=== PATIENT | male | born 1985 | race Caucasian/White ===

== ENCOUNTER 2025-10-17 16:25 | Emergency (ER) | payer MEDICAID, SELFPAY ==
--- OUTSIDE RECORDS SUMMARY | 2025-10-09 04:00 | XMS_ITS | Continuity of Care Document ---
Author Organization [facility] Address [address] [place] [id number] Phone Care Team Providers Care Consulting Services Manager Name Role Phone Sarah Robertson MS Unavailable Unavailable Allergies, Adverse Reactions, Alerts Substance Reaction Status Criticality No Known Allergies Active No Inform ation Procedures Procedure Date Group Therapy Advance Directives Directive Yes / No Effective Date File Name No Information Encounters Encounter Description Practice Location Reason(s) For Visit Diagnoses Date Provider Group Therapy [facility], [address] [place] [address], [address] [place] [address] tel:[phone] [facility] [address] [place] No Information 2024 Marcelo Smith. [address] [place] [address], [address] [place] [address], . tel:[phone] [facility], [address] [place] [address], [facility], tel:[phone] [facility] [address] [place] No Information 2024 Marcelo Smith. [address] [place] [address], [address] [place] [address], . tel:[phone] [facility], [address] [place] [address], [facility], tel:[phone] [facility] [address] [place] No Information 2024 Marcelo Smith. [address] [place] [address], [address] [place] [address], . tel:[phone] [facility], [address] [place] [address], [facility], [place] tel:[phone] [facility] [address] [place] Encounter for screening exam for behavioral disorder 2024 Lexi Aamauraa. [address] [place] [address], [address] [place] [address], [place]. tel:[phone] [facility], [address] [place] [address], [facility], tel:[phone] [facility] [address] [place] [address] [employer] [place] [address], [address] [place] [address], [place]. tel:[phone] [facility], [address] [place] [address], [facility], tel:[phone] [facility] [address] [place] [address] [employer] [place] [address], [address] [place] [address], [place]. tel:[phone] [facility], [address] [place] [address], [facility], tel:[phone] [facility] [address] [place] [address] [employer] [place] [address], [address] [place] [address], [place]. tel:[phone] [facility], [address] [place] [address], [facility], tel:[phone] [facility] [address] [place] [address] [employer] [place] [address], [address] [place] [address], [place]. tel:[phone] [facility], [address] [place] [address], [facility], tel:[phone] [facility] [address] [place] 2020 Sal Mely. [address] [place] [address], [address] [place] [address], [place]. tel:[phone] [facility], [address] [place] [address], [facility], tel:[phone] [facility] [address] [facility] 2017 Pesino Deina. [address] [place] [address], [address] [place] [address], [place]. tel:[phone] As per patient privacy policy some of the clinical information may not be visible. Family History Family Member Type Diagnosis Age At Onset No Information Payers Payer name Insurance type Covered libertarian ID Authoriza tion(s) No Information Social History Type Description Quantity Date Captured Comments Sex Male Smoking Status No Information Sexual Orientation Straight or heterosexual Jun Gender Identity Male Chief Complaint And Reason For Visit No Information Plan Of Treatment Date Type Action Status Goal HIV 1/0/2 Ag/Ab w/Rflx. Due on due Goal Hepatitis C screening. Due o n due Goal Unhealthy drug use screening . Due on due Goal Td vaccine. Due on 25 due Goal Depression screening. Due on due Goal Influenza vaccine. Due on No due Goal Tdap. Due on due Goal Health Literacy Assessment. Due on due Goal Lipid panel. Due on 025 due Goal Tobacco screening. Due on No due Goal Tobacco cessation counseling completed Goal Depression screening. Due on due Goal Tdap. Due on due Goal HIV 1/0/2 Ag/Ab w/Rflx. Due on due Goal Influenza vaccine. Due on No due Goal Td vaccine. Due on due Goal Health Literacy Assessment. Due on due Goal HIV 1/0/2 Ag/Ab w/Rflx. Due on due Goal Depression screening. Due on due Goal Influenza vaccine. Due on due Goal Td vaccine. Due on due Goal Tdap. Due on due Goal Health Literacy Assessment. Due on due Goal Influenza vaccine. Due on due Goal Td vaccine. Due on due Goal Depression screening. Due on due Goal Tdap. Due on due Goal Health Literacy Assessment. Due on due Goal HIV 1/0/2 Ag/Ab w/Rflx. Due on due Goal Influenza vaccine. Due on due Goal Depression screening. Due on due Goal HIV 1/0/2 Ag/Ab w/Rflx. Due on due Goal Health Literacy Assessment. Due on due Goal Tdap. Due on due Goal Td vaccine. Due on due Goal Influenza vaccine. Due on due Goal Depression screening. Due on due Goal HIV 1/0/2 Ag/Ab w/Rflx. Due on due Goal Health Literacy Assessment. Due on due Goal Tdap. Due on due Goal Td vaccine. Due on due History Of Present Illness Encounter Date Complaint History Of Prese nt Illness No Information Instructions Date Instruction Additional Infor mation No Information Assessments Type Assessment Date No Information
[2025-10-17] VITALS (7 sets, daily range): BP systolic 96–150; BP diastolic 63–71; PULSE 100–150; RESP 15–30; TEMP 37.3–39.4; O2SAT 95–98; BMI 32.3
--- NOTE | ~2025-10-17 | XR_ITS ---
CLINICAL HISTORY: cough 2 view chest Comparison: None Findings: No consolidation or pneumothorax/pleural effusion. Mild peribronchial wall thickening. Cardiomediastinal silhouette is normal. No mediastinal shift or tracheal deviation. Osseous structures intact. Impression: 1. Mild central bronchial wall thickening. 2. No airspace disease. This document has been electronically signed by: Sebastián Lincoln MD on 10/17/2025 18:57:14
--- NOTE | ~2025-10-17 | CT_ITS ---
CLINICAL HISTORY: cough, SOB, fever w bandemia CT angiography chest using contrast. 3-D postprocessing Comparison: CR - XR CHEST 2V - 10/17/25 17:49 EST Findings: There is good opacification of the main, right and left pulmonary arteries. No CT evidence of pulmonary embolism. Normal caliber thoracic aorta and great vessels. Heart size within normal limits. RV/LV ratio normal. Shotty mediastinal lymph nodes. No lymphadenopathy. Subsegmental dependent atelectasis. 5 mm pleural-based nodule superior segment left lower lobe. Lungs are otherwise clear. No pneumothorax, pleural effusions, pleural plaques or calcifications. No thyroid nodules demonstrated. No chest wall masses.No axillary adenopathy. Mild hepatomegaly with hepatic steatosis. No bony destructive processes demonstrated. Impression: 1. No CT evidence of pulmonary embolus. 2. Normal caliber thoracic aorta. 3. Shotty mediastinal lymph nodes probably reactive follow-up is advised. Subsegmental dependent atelectasis. 5 mm pleural-based nodule left lower lobe consider a follow-up CT chest in 1 year's time if patient is high-risk. This document has been electronically signed by: Sebastián Lincoln MD on 10/17/2025 21:10:03
--- NOTE | ~2025-10-17 | CT_ITS ---
CLINICAL HISTORY: bandemia, elevated bili, diffuse tenderness CT abdomen and pelvis with IV contrast Comparison: None Findings: Minimal discoid atelectasis. No dependent layering pleural effusions. The heart is not enlarged. Coronary artery calcifications: None. Mild hepatomegaly with hepatic steatosis. No focal hepatic lesions. Patent hepatic and portal veins. Physiologic distention of the gallbladder with no radiopaque gallstones. Homogeneous enhancement of the pancreas. No splenomegaly. Normal adrenal glands. Symmetrical renal excretion with no segmental or diffuse renal parenchymal disease or evidence of obstructive uropathy/hydroureteronephrosis. Normal caliber abdominal aorta. Bowel demonstrates a nonobstructive pattern. No free air. Normal appendix and terminal ileum. No significant diverticular disease. No intraperitoneal, retroperitoneal, pelvic or inguinal masses lymphadenopathy or abnormal fluid collections. Normal distention of the urinary bladder. No vertebral body compression fractures or spondylolisthesis. No bony destructive lesions. Impression: 1. Mild hepatomegaly with hepatic steatosis. 2. Normal appendix. No significant diverticular disease. 3. No radiopaque gallstones. This document has been electronically signed by: Sebastián Lincoln MD on 10/17/2025 21:05:07
--- NOTE | 2025-10-17 16:35 | ED_ITS ---
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 Patient reports he went to [facility] yesterday and on his back his symptoms started with chills, and vomiting. Patient reports he was seen at an emergency department in [facility] yesterday with negative chest x-ray and viral testing. Patient states he was attempting to eat Aleta dinner with his family when he began to experience worsening chills and rigors. Patient states he had 1 episode of vomiting while in the department however believes this is due to a coughing fit. Denies chest pain, shortness of breath, difficulty breathing, abdominal pain, nausea, diarrhea, recent travel, MD complaint: dry cough, chills, malaise Related Data Previous Rx's ?Medication ?Instructions ?Recorded cefuroxime axetil 500 mg tablet 500 mg PO Q12H #14 tab s 10/17/25 Allergies Allergy/AdvReac Type Severity Reaction Status Date / Time No Known Allergies Allergy Verified 10/17/25 16:36 Review of Systems 2 Review of Systems: Yes all other systems are reviewed and are negative PMFSH Past Medical History Attestation statement: The following information was validated with the patient. Source: old records reviewed and nursing notes reviewed Social History Social History Alcohol intake: current Smoked in Last 30 Days: Yes Use of substances other than those prescribed or required for medical reasons: No Advance Directives: No Advance Directives Information Provided: No Do you have a plan to hurt others: No Plan Physical Exam ED Vital Signs: Vital Signs - 24 hr 10/17/25 23:20 Temperature 99.1 F Pulse Rate 100 Respiratory Rate 20 Blood Pressure 103/68 Pulse Oximetry 96 Oxygen Delivery Method Room Air BMI result Body Mass Index 32.3 Course Course Course Narrative: This is a Rapid Medical Examination (RME) performed by Ryan Rosario PA-C in triage. Full HPI, ROS, assessment and treatment plan per primary provider in the Main ED. Hx: 40 yo M here w/ cough, myalgias, chills x48 hours. states he was seen in an ED [place] yesterday - dx w/ a viral illness and discharge on tylenol. took 1000mg around 1330 today (3 hours prior) Plan: cxr, viral swabs, ekg 10:44 PM 10/17/2025 (Ryan JACINTO): Patient is signed out to this provider at shift change. In summary the patient is a 40-year-old male presenting to the ED for evaluation of 48 hours of body aches, chills, and generalized malaise. The patient was seen at a hospital in [place] last night for these symptoms and had a negative chest x-ray and viral swabs. The patient presents to the ED today febrile at 102.9, and tachycardic. Laboratory evaluation showed bandemia of 25% and lactic acid of 4.0. Patient received sepsis treatment and lactic acid improved to 2.2, fever resolved, and heart rate improved. The patient's urinalysis was positive for protein, glucose, blood, leukocyte esterase and 1+ bacteria. The patient however has no urinary symptoms. No other infectious source was identified on chest x-ray or exam, a bedside ultrasound was performed by Dr. Arzate. The patient was signed out to this provider pending CT imaging of the abdomen and pelvis, and CTA of the chest. Patient's imaging is now resulted and shows no identifiable source of systemic infection. The patient is adamantly requesting discharge home, patient was seen by Dr. Saida Medina for risks benefit discussion regarding admission versus discharge. The patient was able to state his understanding of the risks of leaving prior to completion of treatment or cultures while having tachycardia, fever, bandemia, and lactic acidosis. Patient was able to state his understanding of the risks of leaving the ED, at this time patient is alert and oriented, in no acute distress, no evidence of impaired ability to make clinical decisions. The patient will be discharged with a course of cefpodoxime for question UTI. Put cultures were drawn during initial presentation and workup, the patient will be discharged per his request, and states he will follow up cultures. 10:57 PM 10/18/2025 (Ryan JACINTO): This provider received a phone call from the lab identifying the patient had grown out Gram-positive cocci in the anaerobic bottle of 1 of his 2 blood cultures. The patient was contacted by this provider and informed of this finding. Patient reports he is feeling markedly improved compared to his visit yesterday, had a mild headache this morning but is feeling overall much better. Patient reports he continues to be compliant with his cefuroxime prescription. The patient was encouraged to closely monitor his symptoms and have a low threshold to return immediately to this, or any local emergency department (patient does not live locally) if he feels any worsening symptoms. Patient was also encouraged, if he continues to feel well, to contact his PCP on Tuesday for urgent follow up and reassessment due to the positive blood cultures, regardless of how he is feeling. Patient stated his understanding and states he will continue antibiotic therapy, present immediately to a local emergency department with any worsening symptoms, and we will contact his PCP on Tuesday. Patient stated he appreciated the phone call, patient sounded reliable. OPHELIA Monsalve 10/23/25 0721 2/2 blood cultures positive - attempted to contact patient with resutls. no answer, LVM for call back. OPHELIA Monsalve 10/23/25 0847 Patient return my call regarding positive blood cultures. He states he is still having a headache intermittently, otherwise no other symptoms. He states that he is local to [place], he was only in [place] for the day. I informed him of positive 2/2 sets of blood cultures, and advised him to return to the ED to have repeat blood work/ further work up. he verbalized understanding, he could not tell me if he would return to our facility for testing but states if he does not, he will go to his nearest ED in [place]. all questions answered at this time. Reevaluation(s) Reevaluation #1: Eliot Arzate MD: I personally had a lengthy shared decision-making discussion patient was eager to leave the hospital and go back to [place] where he lives. See above for further narrative. The patient's girlfriend was present patient has provided reliable phone number to call if blood cultures are positive he understands Medications Administered Discontinued Medications Generic Name Dose Route Start Last Admin Trade Name Freq PRN Reason Stop Dose Admin Cefuroxime Axetil 500 mg 10/17/25 22:54 10/17/25 22:59 Cefuroxime Axetil 500 Mg Tablet PO 10/17/25 22:55 500 mg ONCE ONE Administration Lactated Ringer's 1,000 mls @ 999 mls/hr 10/17/25 17:21 10/17/25 18:37 Lr IV 10/17/25 18:21 Infused .Q1H1M ONE Infusion Lactated Ringer's 3,240 mls @ 3,240 mls/hr 10/17/25 17:57 10/17/25 19:18 Lr 30 ml/kg infuse over 1 hr (3240 ml) 10/17/25 18:56 Infused IV Infusion .Q1H ONE Ceftriaxone Sodium 1 gm/ 50 mls @ 100 mls/hr 10/17/25 18:00 10/17/25 18:37 Sodium Chloride IV 10/17/25 18:29 Infused ONCE ONE Infusion Acetaminophen 1,000 mg in 100 mls @ 400 mls/hr 10/17/25 19:09 10/17/25 19:47 Ofirmev IV 10/17/25 19:23 Infused ONCE ONE Infusion Iohexol 85 ml 10/17/25 19:46 10/17/25 19:47 Iohexol 350 Mg/Ml 100 Ml Infus..Btl IV 10/17/25 19:47 85 ml ONCE ONE Administration Procedures Procedure Narrative Procedure Narrative: EMERGENCY ULTRASOUND INTERPRETATION-Limited Echocardiography [This study was ordered, performed, and interpreted by myself. 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 Patient reports he went to [facility] yesterday and on his back his symptoms started with chills, and vomiting. Patient reports he was seen at an emergency department in [place] yesterday with negative chest x-ray and viral testing. Patient states he was attempting to eat Aleta dinner with his family when he began to experience worsening chills and rigors. Patient states he had 1 episode of vomiting while in the department however believes this is due to a coughing fit. VS on initial observation-BP 150/71, pulse rate of 150, respiratory rate of 20, afebrile with oral temp of 102.9?, O2 saturation 98% on room air. On physical exam patient is tired appearing, and looks ill. HEENT exam reveals normocephalic head, atraumatic, EOMI, no pain with extraocular movements, no nystagmus noted, no meningeal signs, no tenderness and ranging the neck, no stiffness Lungs are clear to auscultation bilaterally, cardiac exam reveals a tachycardic rate and rhythm without murmurs/rubs/gallops, abdomen is soft, without rigidity, no guarding, nontender, extremities without edema, cyanosis, no rashes over the skin Plan: Labs, EKG, CXR EKG reveals sinus tachycardia without ST-elevation/depression, lengthened QT or signs of acute ischemia, initial troponin 15.1, patient without chest pain-ACS less likely Labs reveal leukopenia of 3.9 with bandemia of 25, no evidence of anemia, lactic acid of 4.0, total bilirubin of 2.1, no electrolyte abnormality. UA reveals concentrated urine with 4+ protein, >1000 urine glucose, 1+ urine blood, trace leukocyte esterase, 3-5 urine RBCs, 6-10 urine WBCs, 0-2 squamous epithelial cells, 1+ urine bacteria CXR reveals mild bronchial wall thickening without acute airspace disease At 6:30 on 10/17/25 I suspected infection due to lactic acid of 4.0, bandemia of 25, tachycardia of 150, and febrile at 102.9 patient was medicated with 30 mg/kg IV fluid bolus, 1 g IV Tylenol, and 1g IV ceftriaxone given for bacterial coverage. I ordered CTA PE protocol, and CT abdomen and pelvis for further evaluation for leukopenia, and bandemia. Differential Diagnosis Differential Diagnoses: The differential diagnosis associated with the presentation includes Dysrhythmia COVID Flu RSV Viral illness Pneumonia UTI Acute abdomen Admission/Observation Consideration of admission/observation: Escalation of care including admission/observation considered Lab Data MDM Lab Attestation statement: I reviewed the patient's lab results. 10/17/25 17:02 10/17/25 17:02 Labs: Lab Results 10/17/25 10/17/25 10/17/25 Range/Units 16:44 17:02 17:04 WBC 3.9 L (4.8-10.8) X10*3/uL RBC 6.14 H (4.60-5.80) X10*6/uL Hgb 17.8 (14.0-18.0) g/dl Hct 49.5 (42.0-52.0) % MCV 80.6 (80.0-98.0) fL MCH 29.0 (27.0-33.0) pg MCHC 36.0 (31.0-36.0) g/dl RDW 12.2 (11.0-16.0) % Plt Count 213 (160-400) X10*3/uL MPV 10.0 (9.4-12.4) fL Immature Gran % (Auto) Cancelled Neut % (Auto) Cancelled Lymph % (Auto) Cancelled [place] % (Auto) Cancelled Eos % (Auto) Cancelled Baso % (Auto) Cancelled Lymph # (Auto) Cancelled [place] # (Auto) Cancelled Eos # (Auto) Cancelled Baso # (Auto) Cancelled Abs Immat Gran (auto) Cancelled Absolute Neuts (auto) Cancelled Absolute Nucleated RBC 0.000 (0.0-0.012) X10*3/uL Nucleated RBC % (auto) 0.0 (0.0-0.2) /100WBC Neutrophils % (Manual) 46 (45-73) % Band Neutrophils % 25 H (3-5) % Lymphocytes % (Manual) 27 (20-40) % Atypical Lymphs % (Man) 2 (0-6) % Abs Neuts (Manual) 2.8 (2.0-8.3) X10*3/uL Lymphocytes # (Manual) 1.1 L (1.2-4.9) X10*3/uL Atyp Lymphs # (Manual) 0.1 x10*3/uL Smudge Cells PRESENT Toxic Vacuolation PRESENT Platelet Estimate NORMAL (NORMAL) Large Platelets PRESENT Plt Morphology Comment NORMAL RBC Morphology NOTED Tatyana Cells 1+ (0-2) /OIF Smear Tech's Comments VERIFIED PT 13.5 (11.2-13.5) SEC INR 1.1 (0.9-1.1) Sodium 136 (135-145) mmol/L Potassium 4.0 (3.3-5.1) mmol/L Chloride 102 (96-108) mmol/L Carbon Dioxide 19 L (22-29) mmol/L Anion Gap 19 (12-20) BUN 12 (9-16) mg/dL Creatinine 1.05 (0.5-1.4) mg/dL Estim Creat Clear Calc 116.3 Estimated GFR > 60 Random Glucose 297 H (60-115) mg/dL Lactic Acid (0.5-2.0) mmol/L Lactic Acid F/U @ 2Hr (0.5-2.0) mmol/L Calcium 9.3 (8.4-10.2) mg/dL Magnesium 1.7 (1.6-2.6) mg/dL Total Bilirubin 2.1 H (0.0-1.0) mg/dL AST 31 (5-37) U/L ALT 23 (0-40) U/L Alkaline Phosphatase 94 (39-117) U/L Troponin I High Sens 15.1 (<3.5-35.0) ng/L Total Protein 7.8 (6.5-8.0) g/dL Albumin 4.2 (3.5-5.0) g/dL Urine Color Dark Yellow Urine Appearance Cloudy Urine pH 5.5 (5.0-9.0) Ur Specific Taylor >= 1.030 H (1.005-1.025) Urine Protein >=1000 (4+) H (Neg-Trace) mg/dL Urine Glucose (UA) >=1000 H (Negative) mg/dL Urine Ketones Trace (Negative) mg/dL Urine Blood Small (1+) H (Negative) Urine Nitrite Negative (Negative) Ur Leukocyte Esterase Trace H (Negative) Urine RBC 3-5 H (0-2) /HPF Urine WBC 6-10 H (0-5) /HPF Ur Squamous Epith Cells 0-2 (0-2) /HPF Ur Transition Epith Cell None seen Urine Bacteria 1+ (None Seen) Hyaline Casts 3-5 (0-2) /LPF Granular Casts Present Influenza Type A (PCR) NEGATIVE (Negative) Influenza Type B (PCR) NEGATIVE (Negative) RSV RNA Qual (PCR) NEGATIVE (Negative) SARS-CoV-2 RNA (RT-PCR) NEGATIVE (Negative) 10/17/25 10/17/25 Range/Units 17:25 19:53 WBC (4.8-10.8) X10*3/uL RBC (4.60-5.80) X10*6/uL Hgb (14.0-18.0) g/dl Hct (42.0-52.0) % MCV (80.0-98.0) fL MCH (27.0-33.0) pg MCHC (31.0-36.0) g/dl RDW (11.0-16.0) % Plt Count (160-400) X10*3/uL MPV (9.4-12.4) fL Immature Gran % (Auto) Neut % (Auto) Lymph % (Auto) [place] % (Auto) Eos % (Auto) Baso % (Auto) Lymph # (Auto) [place] # (Auto) Eos # (Auto) Baso # (Auto) Abs Immat Gran (auto) Absolute Neuts (auto) Absolute Nucleated RBC (0.0-0.012) X10*3/uL Nucleated RBC % (auto) (0.0-0.2) /100WBC Neutrophils % (Manual) (45-73) % Band Neutrophils % (3-5) % Lymphocytes % (Manual) (20-40) % Atypical Lymphs % (Man) (0-6) % Abs Neuts (Manual) (2.0-8.3) X10*3/uL Lymphocytes # (Manual) (1.2-4.9) X10*3/uL Atyp Lymphs # (Manual) x10*3/uL Smudge Cells Toxic Vacuolation Platelet Estimate (NORMAL) Large Platelets Plt Morphology Comment RBC Morphology Tatyana Cells /OIF Smear Tech's Comments PT (11.2-13.5) SEC INR (0.9-1.1) Sodium (135-145) mmol/L Potassium (3.3-5.1) mmol/L Chloride (96-108) mmol/L Carbon Dioxide (22-29) mmol/L Anion Gap (12-20) BUN (9-16) mg/dL Creatinine (0.5-1.4) mg/dL Estim Creat Clear Calc Estimated GFR Random Glucose (60-115) mg/dL Lactic Acid 4.0 H* (0.5-2.0) mmol/L Lactic Acid F/U @ 2Hr 2.2 H* (0.5-2.0) mmol/L Calcium (8.4-10.2) mg/dL Magnesium (1.6-2.6) mg/dL Total Bilirubin (0.0-1.0) mg/dL AST (5-37) U/L ALT (0-40) U/L Alkaline Phosphatase (39-117) U/L Troponin I High Sens (<3.5-35.0) ng/L Total Protein (6.5-8.0) g/dL Albumin (3.5-5.0) g/dL Urine Color Urine Appearance Urine pH (5.0-9.0) Ur Specific Taylor (1.005-1.025) Urine Protein (Neg-Trace) mg/dL Urine Glucose (UA) (Negative) mg/dL Urine Ketones (Negative) mg/dL Urine Blood (Negative) Urine Nitrite (Negative) Ur Leukocyte Esterase (Negative) Urine RBC (0-2) /HPF Urine WBC (0-5) /HPF Ur Squamous Epith Cells (0-2) /HPF Ur Transition Epith Cell Urine Bacteria (None Seen) Hyaline Casts (0-2) /LPF Granular Casts Influenza Type A (PCR) (Negative) Influenza Type B (PCR) (Negative) RSV RNA Qual (PCR) (Negative) SARS-CoV-2 RNA (RT-PCR) (Negative) Independent Interpretation I performed an independent interpretation of an: EKG and Plain X-Ray Interpretation: I personally interpreted the EKG which reveals sinus tachycardia without signs of acute ischemia, lengthened QT Vent. Rate : 150 BPM Atrial Rate : 150 BPM P-R Int : 126 ms QRS Dur : 74 ms QT Int : 266 ms P-R-T Axes : 65 88 48 degrees QTcB Int : 420 ms Sinus tachycardia Possible Anterior infarct , age undetermined Abnormal ECG No previous ECGs available I interpreted the CXR which was negative for infiltrations, consolidations, pneumothorax, cardiomegaly, pulmonary edema, pleural effusion, I agree with the radiologist's interpretation Radiology Impression Discussion of test interpretation with radiology: I have reviewed the radiologist's reading. Radiologist Impression: CXR Findings: No consolidation or pneumothorax/pleural effusion. Mild peribronchial wall thickening. Cardiomediastinal silhouette is normal. No mediastinal shift or tracheal deviation. Osseous structures intact. Impression: 1. Mild central bronchial wall thickening. 2. No airspace disease. This document has been electronically signed by: Sebastián Lincoln MD on 10/17/2025 18:57:14 Dictated By: Sebastián Lincoln MD Signed By: <Electronically signed by Sebastián Lincoln MD in [place]> 10/17/[address] abdomen and pelvis with IV contrast Comparison: None Findings: Minimal discoid atelectasis. No dependent layering pleural effusions. The heart is not enlarged. Coronary artery calcifications: None. Mild hepatomegaly with hepatic steatosis. No focal hepatic lesions. Patent hepatic and portal veins. Physiologic distention of the gallbladder with no radiopaque gallstones. Homogeneous enhancement of the pancreas. No splenomegaly. Normal adrenal glands. Symmetrical renal excretion with no segmental or diffuse renal parenchymal disease or evidence of obstructive uropathy/hydroureteronephrosis. Normal caliber abdominal aorta. Bowel demonstrates a nonobstructive pattern. No free air. Normal appendix and terminal ileum. No significant diverticular disease. No intraperitoneal, retroperitoneal, pelvic or inguinal masses lymphadenopathy or abnormal fluid collections. Normal distention of the urinary bladder. No vertebral body compression fractures or spondylolisthesis. No bony destructive lesions. Impression: 1. Mild hepatomegaly with hepatic steatosis. 2. Normal appendix. No significant diverticular disease. 3. No radiopaque gallstones. This document has been electronically signed by: Sebastián Lincoln MD on 10/17/2025 21:05:07 CT angiography chest using contrast. 3-D postprocessing Comparison: CR - XR CHEST 2V - 10/17/25 17:49 EST Findings: There is good opacification of the main, right and left pulmonary arteries. No CT evidence of pulmonary embolism. Normal caliber thoracic aorta and great vessels. Heart size within normal limits. RV/LV ratio normal. Shotty mediastinal lymph nodes. No lymphadenopathy. Subsegmental dependent atelectasis. 5 mm pleural-based nodule superior segment left lower lobe. Lungs are otherwise clear. No pneumothorax, pleural effusions, pleural plaques or calcifications. No thyroid nodules demonstrated. No chest wall masses.No axillary adenopathy. Mild hepatomegaly with hepatic steatosis. No bony destructive processes demonstrated. Impression: 1. No CT evidence of pulmonary embolus. 2. Normal caliber thoracic aorta. 3. Shotty mediastinal lymph nodes probably reactive follow-up is advised. Subsegmental dependent atelectasis. 5 mm pleural-based nodule left lower lobe consider a follow-up CT chest in 1 year's time if patient is high-risk. This document has been electronically signed by: Sebastián Lincoln MD on 10/17/2025 21:10:03 Independent Historian Clinical information obtained from an independent historian. History obtained from or confirmed by: Spouse (Significant other at bedside corroborating history) External Record Review External record reviewed: Inpatient record, Office record, Outpatient record and Prior outpatient labs Chronic Conditions Patient?s care impacted by: Diabetes, Hypertension and Other (DVT on AC) Discharge Plan Discharge Clinical Impression: Bandemia without diagnosis of specific infection Patient Disposition: Home, Self-Care Instructions: Sepsis (DC), Leukocytosis (ED) Additional Instructions: Thank you for choosing [facility] for your care today. Your labs and vital signs today are potentially concerning for a systemic infection in your blood. However we are currently unable to find a specific source of this infection, your urinalysis did show some findings concerning for possible UTI. We did recommend admission while awaiting results of blood cultures however you are requesting to be discharged instead. Seeing as your vital signs have improved, and blood cultures have been drawn, it is safe to discharge you home per your request. Please take cefuroxime twice daily to treat your potential urinary tract infection. Please contact the hospital in 3 days if you do not hear any results regarding your blood cultures. You should take alternating (staggered) doses of ibuprofen 600mg and Tylenol 1000mg every 4 hours as needed for any additional pain. Please stay well hydrated and get plenty of rest. Your CT chest showed some abnormal lymph nodes in the mediastinum. Please contact your primary care provider for a follow up in 1 year for re-evaluation of this finding. Please follow up with your primary care physician for re-evaluation, additional management of your symptoms, and continued preventative care. If you do not have a primary care physician, please call the [facility] at [phone] to establish a new primary care physician. While waiting to establish your new primary care physician, you can call our Walk-in [facility] at [phone] for non-emergency needs. Please return to the emergency department if you develop a severe or sudden change in your symptoms, a fever over 100.4 that does not improve with Tylenol or Ibuprofen, recurrent vomiting, or any other new or worsening symptoms or concerns. Prescriptions: New cefuroxime axetil 500 mg tablet 500 mg PO Q12H Qty: 14 0RF Stand Alone Forms: Work/School Release Interventions: ED Discharge Assessment Last Done: 10/17/25 23:20 Discharge Date/Time: 10/17/25 23:20 Print Language: Irish
--- NOTE | 2025-10-17 16:39 | ECG_ITS ---
Test Reason : COUGH Blood Pressure : */* mmHG Vent. Rate : 150 BPM Atrial Rate : 150 BPM P-R Int : 126 ms QRS Dur : 74 ms QT Int : 266 ms P-R-T Axes : 65 88 48 degrees QTcB Int : 420 ms Sinus tachycardia Possible Anterior infarct , age undetermined Abnormal ECG No previous ECGs available Referred By: Divya Rosario Electronically Signed By: OTTO VILLARREAL MD
[2025-10-17 17:18] LABS: Hematocrit 49.5 % (42.0-52.0); Hemoglobin 17.8 g/dl (14.0-18.0); Mean Corpuscular HGB Conc 36.0 g/dl (31.0-36.0); Mean Corpuscular Hemoglobin 29.0 pg (27.0-33.0); Mean Corpuscular Volume 80.6 fL (80.0-98.0); NRBC Abs Auto 0.000 X10*3/uL (0.0-0.012); NRBC Pct Auto 0.0 /100WBC (0.0-0.2); Platelet Count 213 X10*3/uL (160-400); Red Blood Count 6.14 X10*6/uL (4.60-5.80); White Blood Count 3.9 X10*3/uL (4.8-10.8)
[2025-10-17 17:26] LABS: INTERNATIONAL NORM RATIO 1.1 (0.9-1.1); Prothrombin Time 13.5 SEC (11.2-13.5)
[2025-10-17] MEDS: Lactated Ringers 1,000 ML 999 ML IV (17:30)
[2025-10-17 17:34] LABS: Alanine Aminotransferase 23 U/L (0-40); Albumin Level 4.2 g/dL (3.5-5.0); Alkaline Phosphatase 94 U/L (39-117); Anion Gap 19 (12-20); Aspartate Amino Transferase 31 U/L (5-37); Blood Urea Nitrogen 12 mg/dL (9-16); Calcium 9.3 mg/dL (8.4-10.2); Carbon Dioxide 19 mmol/L (22-29); Chloride 102 mmol/L (96-108); Creatinine Clr Calc Pharmacy 116.3; Estimated Glomerular Filt Rate > 60; Magnesium 1.7 mg/dL (1.6-2.6); Potassium 4.0 mmol/L (3.3-5.1); Sodium 136 mmol/L (135-145); Total Protein 7.8 g/dL (6.5-8.0)
[2025-10-17 17:38] LABS: Troponin-I High Sensitivity 15.1 ng/L (<3.5-35.0)
[2025-10-17 17:45] LABS: Resp Syncy Virus RNA Qual PCR NEGATIVE (Negative); SARS COV2 PCR INHOUSE NEGATIVE (Negative)
[2025-10-17 17:55] LABS: Neutrophils Percent Manual 46 % (45-73)
[2025-10-17 17:57] LABS: Atypical Lymph Absolute Manual 0.1 x10*3/uL; Atypical Lymphs Percent Manual 2 % (0-6); Band Neutrophils Percent 25 % (3-5); Lymphocytes Absolute Manual 1.1 X10*3/uL (1.2-4.9); Lymphocytes Percent Manual 27 % (20-40); Neutrophils Absolute Manual 2.8 X10*3/uL (2.0-8.3); RBC Morphology NOTED
[2025-10-17 17:58] LABS: Burr Cells 1+ (0-2) /OIF; Large Platelet PRESENT; Smudge Cells PRESENT
[2025-10-17 17:59] LABS: Toxic Vacuolation PRESENT
--- OUTSIDE RECORDS SUMMARY | 2025-10-17 18:00 | XMS_ITS ---
Author Name [facility] Organization Unknown Results Test Name/Text Value Interpretation Date Range Source 2019-nCOV RNA Not Detected 10/17/2025 [facility] CCT Influenza virus A in upper resp spec by JORI with probe detection Not Detected 10/17/2025 [facility] Respiratory syncytial virus RNA in upper resp spec by JORI with probe detection Not Detected 10/17/2025 [facility] Comment Negative results do not preclude SARS-CoV-2, Influenza or RSV infection and should not be used as the sole basis for treatment or other patient management decisions. 10/17/2025 [facility] Influenza virus B in upper resp spec by JORI with probe detection Not Detected 10/17/2025 [facility]CT Magnesium SerPl-mCnc 1.8 mg/dL 10/17/2025 1.6 - 2. 7 H[facility]CT GFR/BSA.pred SerPlBld TFN-HUH-AeXCnc >90.0 10/17/2025 59 - HHCCT ALP SerPl-cCnc 73.0 U/L 10/17/2025 45 - 128 HHCC T Albumin/Glob SerPl 1.1 Ratio 10/17/2025 1 - 3 HHCCT Potassium SerPl-sCnc 3.8 mmol/L 10/17/2025 3.4 - 5 .3 HHCCT BUN SerPl-mCnc 10.0 mg/dL 10/17/2025 8 - [address] Globulin Ser Calc-mCnc 3.6 g/dL 10/17/2025 1.5 - 3.9 HHCCT Bilirub SerPl-mCnc 1.5 mg/dL Above high normal 10/17/2025 0. 2 - 1 HHCCT Anion Gap Bld-sCnc 14.0 10/17/2025 7 - 17 HHCCT Creat SerPl-mCnc 0.63 mg/dL 10/17/2025 0.5 - 1.3 H HCCT Prot SerPl-mCnc 7.4 g/dL 10/17/2025 6.3 - 8.[address] AST SerPl-cCnc 18.0 U/L 10/17/2025 10 - 55 [facility] T ALT SerPl-cCnc 17.0 U/L 10/17/2025 10 - 55 [facility] T BUN/Creat SerPl 16.0 Ratio 10/17/2025 10 - 25 HH CCT Sodium SerPl-sCnc 132.0 mmol/L Below low normal 10/17/2025 1 36 - 145 HHCCT Glucose SerPl-mCnc 248.0 mg/dL Above high normal 10/17/2025 65 - 99 HHCCT Chloride SerPl-sCnc 96.0 mmol/L Below low normal 10/17/2025 98 - 107 HHCCT Albumin SerPl-mCnc 3.8 g/dL 10/17/2025 3.5 - 5 HHCCT CO2 SerPl-sCnc 22.0 mmol/L 10/17/2025 22 - 33 HH CCT Calcium SerPl-mCnc 8.8 mg/dL 10/17/2025 8.7 - 10.5 HHCCT WBC num Bld Auto 11.3 Thou/uL Above high normal 10/17/2025 4 - 11 HHCCT RDW RBC Auto-Rto 12.1 % 10/17/2025 11.5 - 14.5 HHCCT Imm Granulocytes num Bld Auto 0.05 Thou/uL 10/17/2025 0 - 0.1 HHCCT Basophils/leuk NFr Bld Auto 0.3 % 10/17/2025 H[facility]CT Neutrophils num Bld Auto 9.58 Thou/uL Above high normal 10/17/2025 2 - 7.5 HHCCT Lymphocytes num Bld Auto 0.66 Thou/uL Below low normal 10/17/2025 1.5 - 4.5 HHCCT PMV Bld Auto 9.8 fL 10/17/2025 7.5 - 12.5 HHCCT RBC num Bld Auto 5.89 Mil/uL 10/17/2025 4.5 - 6.2 HHCCT Monocytes/leuk NFr Bld Auto 8.3 % 10/17/2025 H[facility]CT Monocytes num Bld Auto 0.94 Thou/uL 10/17/2025 0.2 - 1.5 HHCCT MCH RBC Qn Auto 28.5 pg 10/17/2025 26 - [address] Eosinophil/leuk NFr Bld Auto 0.0 % 10/17/2025 H[facility]CT Eosinophil num Bld Auto 0.0 Thou/uL 10/17/2025 0 - 0.7 HHCCT Hgb Bld-mCnc 16.8 g/dL 10/17/2025 13 - 17.7 HHCCT Hct VFr Bld Auto 46.9 % 10/17/2025 39 - 54 HH CCT Platelet num Bld Auto 228.0 Thou/uL 10/17/2025 150 - 450 HHCCT Basophils num Bld Auto 0.03 Thou/uL 10/17/2025 0 - 0.2 HHCCT Lymphocytes/leuk NFr Bld Auto 5.9 % 10/17/2025 H[facility]CT Neutrophils/leuk NFr Bld Auto 85.1 % 10/17/2025 HHCCT MCV RBC Auto 80.0 fL 10/17/2025 80 - 100 HHCCT Imm Granulocytes/leuk NFr Bld Auto 0.4 % 10/17/2025 HHCCT MCHC RBC Auto-mCnc 35.8 g/dL 10/17/2025 30 - 36 HHCCT POC Glucose 216.0 mg/dL Above high normal 08/12/2025 65 - 99 HHCCT Magnesium SerPl-mCnc 1.9 mg/dL 08/12/2025 1.6 - 2. 7 HHCCT Creat SerPl-mCnc 0.51 mg/dL 08/12/2025 0.5 - 1.3 H HCCT Potassium SerPl-sCnc 4.3 mmol/L 08/12/2025 3.4 - 5 .3 HHCCT Glucose SerPl-mCnc 168.0 mg/dL Above high normal 08/12/2025 65 - 99 HHCCT CO2 SerPl-sCnc 21.0 mmol/L Below low normal 08/12/2025 22 - 33 HHCCT Calcium SerPl-mCnc 8.8 mg/dL 08/12/2025 8.7 - 10.5 HHCCT Chloride SerPl-sCnc 98.0 mmol/L 08/12/2025 98 - 10 7 HHCCT BUN SerPl-mCnc 11.0 mg/dL 08/12/2025 8 - [address] Sodium SerPl-sCnc 134.0 mmol/L Below low normal 08/12/2025 1 36 - 145 HHCCT BUN/Creat SerPl 22.0 Ratio 08/12/2025 10 - 25 HH CCT GFR/BSA.pred SerPlBld RKB-ZVU-EvVXkv >90.0 08/12/2025 59 - HHCCT Anion Gap Bld-sCnc 15.0 08/12/2025 7 - 17 HHCCT POC Glucose 161.0 mg/dL Above high normal 08/12/2025 65 - 99 HHCCT Est. average glucose Bld gHb Est-mCnc 266.0 mg/dL 08/12/2025 HHCCT Hgb A1c MFr Bld 10.9 % Above high normal 08/12/2025 - 5.7 HHCCT Platelet num Bld Auto 278.0 Thou/uL 08/12/2025 150 - 450 HHCCT PMV Bld Auto 9.8 fL 08/12/2025 7.5 - 12.5 HHCCT RBC num Bld Auto 5.21 Mil/uL 08/12/2025 4.5 - 6.2 HHCCT Hgb Bld-mCnc 15.0 g/dL 08/12/2025 13 - 17.7 HHCCT Hct VFr Bld Auto 42.8 % 08/12/2025 39 - 54 HH CCT RDW RBC Auto-Rto 11.7 % 08/12/2025 11.5 - 14.5 HHCCT WBC num Bld Auto 14.7 Thou/uL Above high normal 08/12/2025 4 - 11 HHCCT MCHC RBC Auto-mCnc 35.0 g/dL 08/12/2025 30 - 36 HHCCT MCH RBC Qn Auto 28.8 pg 08/12/2025 26 - [address] MCV RBC Auto 82.0 fL 08/12/2025 80 - 100 HHCCT POC Glucose 194.0 mg/dL Above high normal 08/11/2025 65 - 99 HHCCT POC Glucose 262.0 mg/dL Above high normal 08/11/2025 65 - 99 HHCCT POC Glucose 205.0 mg/dL Above high normal 08/11/2025 65 - 99 HHCCT Influenza virus B in upper resp spec by JORI with probe detection Not Detected 08/11/2025 [facility]CT Influenza virus A in upper resp spec by JORI with probe detection Not Detected 08/11/2025 [facility]CT 2019-nCOV RNA Not Detected 08/11/2025 [facility] CCT Respiratory syncytial virus RNA in upper resp spec by JORI with probe detection Not Detected 08/11/2025 H[facility]CT Comment Negative results do not preclude SARS-CoV-2, Influenza or RSV infection and should not be used as the sole basis for treatment or other patient management decisions. 08/11/2025 HHCCT Lactate SerPl-sCnc 1.3 mmol/L 08/11/2025 0.5 - 1.9 HHCCT CO2 SerPl-sCnc 21.0 mmol/L Below low normal 08/11/2025 22 - 33 HHCCT BUN SerPl-mCnc 13.0 mg/dL 08/11/2025 8 - [address] Bilirub SerPl-mCnc 1.4 mg/dL Above high normal 08/11/2025 0. 2 - 1 HHCCT Sodium SerPl-sCnc 133.0 mmol/L Below low normal 08/11/2025 1 36 - 145 HHCCT Creat SerPl-mCnc 0.59 mg/dL 08/11/2025 0.5 - 1.3 H HCCT Albumin SerPl-mCnc 3.7 g/dL 08/11/2025 3.5 - 5 HHCCT Calcium SerPl-mCnc 8.9 mg/dL 08/11/2025 8.7 - 10.5 HHCCT BUN/Creat SerPl 22.0 Ratio 08/11/2025 10 - 25 HH CCT Prot SerPl-mCnc 7.1 g/dL 08/11/2025 6.3 - 8.[address] AST SerPl-cCnc 13.0 U/L 08/11/2025 10 - 55 [facility] T Globulin Ser Calc-mCnc 3.4 g/dL 08/11/2025 1.5 - 3.9 HHCCT Chloride SerPl-sCnc 97.0 mmol/L Below low normal 08/11/2025 98 - 107 HHCCT Anion Gap Bld-sCnc 15.0 08/11/2025 7 - 17 HHCCT Glucose SerPl-mCnc 267.0 mg/dL Above high normal 08/11/2025 65 - 99 HHCCT ALP SerPl-cCnc 114.0 U/L 08/11/2025 45 - 128 [facility] T Albumin/Glob SerPl 1.1 Ratio 08/11/2025 1 - 3 HHCCT Potassium SerPl-sCnc 4.0 mmol/L 08/11/2025 3.4 - 5 .3 HHCCT ALT SerPl-cCnc 11.0 U/L 08/11/2025 10 - 55 [facility] T GFR/BSA.pred SerPlBld VMB-YHP-QfOZnz >90.0 08/11/2025 59 - HHCCT Magnesium SerPl-mCnc 2.0 mg/dL 08/11/2025 1.6 - 2. 7 HHCCT B-OH-Butyr SerPl-sCnc 0.15 mmol/L 08/11/2025 - 0.28 HHCCT Osmolality SerPl 292.0 mOsm/Kg 08/11/2025 275 - 30 5 HHCCT Neutrophils num Bld Auto 12.49 Thou/uL Above high normal 08/11/2025 2 - 7.5 HHCCT PMV Bld Auto 10.0 fL 08/11/2025 7.5 - 12.5 HHCCT Neutrophils/leuk NFr Bld Auto 74.7 % 08/11/2025 HHCCT Imm Granulocytes num Bld Auto 0.07 Thou/uL 08/11/2025 0 - 0.1 HHCCT RDW RBC Auto-Rto 12.0 % 08/11/2025 11.5 - 14.5 HHCCT Lymphocytes/leuk NFr Bld Auto 15.6 % 08/11/2025 HHCCT Eosinophil num Bld Auto 0.05 Thou/uL 08/11/2025 0 - 0.7 HHCCT RBC num Bld Auto 5.3 Mil/uL 08/11/2025 4.5 - 6.2 H HCCT WBC num Bld Auto 16.7 Thou/uL Above high normal 08/11/2025 4 - 11 HHCCT Hgb Bld-mCnc 15.1 g/dL 08/11/2025 13 - 17.7 HHCCT Hct VFr Bld Auto 43.5 % 08/11/2025 39 - 54 HH CCT Imm Granulocytes/leuk NFr Bld Auto 0.4 % 08/11/2025 HHCCT Eosinophil/leuk NFr Bld Auto 0.3 % 08/11/2025 HHCCT Basophils num Bld Auto 0.03 Thou/uL 08/11/2025 0 - 0.2 HHCCT Platelet num Bld Auto 250.0 Thou/uL 08/11/2025 150 - 450 HHCCT MCV RBC Auto 82.0 fL 08/11/2025 80 - 100 HHCCT Basophils/leuk NFr Bld Auto 0.2 % 08/11/2025 HHCCT Lymphocytes num Bld Auto 2.61 Thou/uL 08/11/2025 1.5 - 4.5 HHCCT MCHC RBC Auto-mCnc 34.7 g/dL 08/11/2025 30 - 36 HHCCT Monocytes/leuk NFr Bld Auto 8.8 % 08/11/2025 HHCCT Monocytes num Bld Auto 1.47 Thou/uL 08/11/2025 0.2 - 1.5 HHCCT MCH RBC Qn Auto 28.5 pg 08/11/2025 26 - [address] B-OH-Butyr SerPl-sCnc 0.17 mmol/L 04/15/2025 - 0.28 HHCCT Lactate SerPl-sCnc 1.1 mmol/L 04/15/2025 0.5 - 1.9 HHCCT pCO2 BldV 29.0 mmHG Below low normal 04/15/2025 35 - 50 HH CCT CO2 BldV-sCnc 18.0 mmol/L Below low normal 04/15/2025 23 - 2 9 HHCCT pO2 BldV 84.0 mmHG Above high normal 04/15/2025 0 - 60 H HCCT Base deficit BldA-sCnc 0.5 mmol/L 04/15/2025 HHCCT pH BldV 7.48 Above high normal 04/15/2025 7.33 - 7.43 HHCCT Respiratory Information ROOM AIR 04/15/2025 HHCCT BUN SerPl-mCnc 15.0 mg/dL 04/15/2025 8 - [address] Anion Gap Bld-sCnc 18.0 Above high normal 04/15/2025 7 - 17 HHCCT ALT SerPl-cCnc 12.0 U/L 04/15/2025 10 - 55 [facility] T Chloride SerPl-sCnc 93.0 mmol/L Below low normal 04/15/2025 98 - 107 HHCCT Potassium SerPl-sCnc 4.2 mmol/L 04/15/2025 3.4 - 5 .3 HHCCT Glucose SerPl-mCnc 222.0 mg/dL Above high normal 04/15/2025 65 - 99 HHCCT Albumin SerPl-mCnc 4.0 g/dL 04/15/2025 3.5 - 5 HHCCT BUN/Creat SerPl 19.0 Ratio 04/15/2025 10 - 25 HH CCT Creat SerPl-mCnc 0.8 mg/dL 04/15/2025 0.5 - 1.3 HH CCT AST SerPl-cCnc 14.0 U/L 04/15/2025 10 - 55 [facility] T CO2 SerPl-sCnc 19.0 mmol/L Below low normal 04/15/2025 22 - 33 HHCCT ALP SerPl-cCnc 88.0 U/L 04/15/2025 45 - 128 HH[facility] T Sodium SerPl-sCnc 130.0 mmol/L Below low normal 04/15/2025 1 36 - 145 HHCCT Globulin Ser Calc-mCnc 4.2 g/dL Above high normal 04/15/2025 1.5 - 3.9 HHCCT GFR/BSA.pred SerPlBld NAL-KPZ-LtMRhx >90.0 04/15/2025 59 - HHCCT Calcium SerPl-mCnc 9.7 mg/dL 04/15/2025 8.7 - 10.5 HHCCT Albumin/Glob SerPl 1.0 Ratio 04/15/2025 1 - 3 HHCCT Bilirub SerPl-mCnc 1.5 mg/dL Above high normal 04/15/2025 0. 2 - 1 HHCCT Prot SerPl-mCnc 8.2 g/dL 04/15/2025 6.3 - 8.[address] Magnesium SerPl-mCnc 1.6 mg/dL 04/15/2025 1.6 - 2. 7 HHCCT Lactate SerPl-sCnc 1.2 mmol/L 04/15/2025 0.5 - 1.9 HHCCT Basophils num Bld Auto 0.03 Thou/uL 04/15/2025 0 - 0.2 HHCCT Hgb Bld-mCnc 17.2 g/dL 04/15/2025 13 - 17.7 HHCCT Lymphocytes num Bld Auto 1.99 Thou/uL 04/15/2025 1.5 - 4.5 HHCCT WBC num Bld Auto 16.2 Thou/uL Above high normal 04/15/2025 4 - 11 HHCCT Eosinophil/leuk NFr Bld Auto 0.3 % 04/15/2025 HHCCT Neutrophils num Bld Auto 12.75 Thou/uL Above high normal 04/15/2025 2 - 7.5 HHCCT PMV Bld Auto 10.0 fL 04/15/2025 7.5 - 12.5 HHCCT RBC num Bld Auto 5.96 Mil/uL 04/15/2025 4.5 - 6.2 HHCCT MCHC RBC Auto-mCnc 36.1 g/dL Above high normal 04/15/2025 30 - 36 HHCCT Eosinophil num Bld Auto 0.05 Thou/uL 04/15/2025 0 - 0.7 HHCCT RDW RBC Auto-Rto 11.9 % 04/15/2025 11.5 - 14.5 HHCCT Basophils/leuk NFr Bld Auto 0.2 % 04/15/2025 HHCCT Imm Granulocytes/leuk NFr Bld Auto 0.4 % 04/15/2025 HHCCT Monocytes num Bld Auto 1.28 Thou/uL 04/15/2025 0.2 - 1.5 HHCCT MCH RBC Qn Auto 28.9 pg 04/15/2025 26 - [address] Imm Granulocytes num Bld Auto 0.06 Thou/uL 04/15/2025 0 - 0.1 HHCCT Hct VFr Bld Auto 47.6 % 04/15/2025 39 - 54 HH CCT MCV RBC Auto 80.0 fL 04/15/2025 80 - 100 HHCCT Neutrophils/leuk NFr Bld Auto 78.9 % 04/15/2025 HHCCT Monocytes/leuk NFr Bld Auto 7.9 % 04/15/2025 HHCCT Platelet num Bld Auto 301.0 Thou/uL 04/15/2025 150 - 450 HHCCT Lymphocytes/leuk NFr Bld Auto 12.3 % 04/15/2025 HHCCT POC Glucose 422.0 mg/dL Above high normal 04/11/2025 65 - 99 HHCCT Albumin SerPl-mCnc 3.6 g/dL 04/11/2025 3.5 - 5 HHCCT Anion Gap Bld-sCnc 14.0 04/11/2025 7 - 17 HHCCT Bilirub SerPl-mCnc 0.9 mg/dL 04/11/2025 0.2 - 1 HHCCT Sodium SerPl-sCnc 133.0 mmol/L Below low normal 04/11/2025 1 36 - 145 HHCCT Globulin Ser Calc-mCnc 3.7 g/dL 04/11/2025 1.5 - 3.9 HHCCT Chloride SerPl-sCnc 97.0 mmol/L Below low normal 04/11/2025 98 - 107 HHCCT Prot SerPl-mCnc 7.3 g/dL 04/11/2025 6.3 - 8.[address] Calcium SerPl-mCnc 9.1 mg/dL 04/11/2025 8.7 - 10.5 HHCCT BUN/Creat SerPl 20.0 Ratio 04/11/2025 10 - 25 HH CCT ALT SerPl-cCnc 17.0 U/L 04/11/2025 10 - 55 HHCC T GFR/BSA.pred SerPlBld TOS-VOH-QjKGjl >90.0 04/11/2025 59 - HHCCT BUN SerPl-mCnc 12.0 mg/dL 04/11/2025 8 - [address] ALP SerPl-cCnc 109.0 U/L 04/11/2025 45 - 128 HH[facility] T Albumin/Glob SerPl 1.0 Ratio 04/11/2025 1 - 3 HHCCT Potassium SerPl-sCnc 4.2 mmol/L 04/11/2025 3.4 - 5 .3 HHCCT Creat SerPl-mCnc 0.6 mg/dL 04/11/2025 0.5 - 1.3 HH CCT AST SerPl-cCnc 16.0 U/L 04/11/2025 10 - 55 HHCC T Glucose SerPl-mCnc 438.0 mg/dL Critically high 04/11/2025 65 - 99 HHCCT CO2 SerPl-sCnc 22.0 mmol/L 04/11/2025 22 - 33 HH CCT Magnesium SerPl-mCnc 1.8 mg/dL 04/11/2025 1.6 - 2. 7 HHCCT Monocytes/leuk NFr Bld Auto 6.6 % 04/11/2025 HHCCT RDW RBC Auto-Rto 11.9 % 04/11/2025 11.5 - 14.5 HHCCT WBC num Bld Auto 14.2 Thou/uL Above high normal 04/11/2025 4 - 11 HHCCT Hct VFr Bld Auto 47.7 % 04/11/2025 39 - 54 HH CCT Monocytes num Bld Auto 0.94 Thou/uL 04/11/2025 0.2 - 1.5 HHCCT Lymphocytes num Bld Auto 3.48 Thou/uL 04/11/2025 1.5 - 4.5 HHCCT MCV RBC Auto 81.0 fL 04/11/2025 80 - 100 HHCCT Eosinophil num Bld Auto 0.11 Thou/uL 04/11/2025 0 - 0.7 HHCCT Basophils num Bld Auto 0.05 Thou/uL 04/11/2025 0 - 0.2 HHCCT Imm Granulocytes num Bld Auto 0.05 Thou/uL 04/11/2025 0 - 0.1 HHCCT Imm Granulocytes/leuk NFr Bld Auto 0.4 % 04/11/2025 HHCCT Hgb Bld-mCnc 17.0 g/dL 04/11/2025 13 - 17.7 HHCCT Neutrophils/leuk NFr Bld Auto 67.3 % 04/11/2025 HHCCT MCH RBC Qn Auto 28.8 pg 04/11/2025 26 - [address] Eosinophil/leuk NFr Bld Auto 0.8 % 04/11/2025 HHCCT Lymphocytes/leuk NFr Bld Auto 24.5 % 04/11/2025 HHCCT MCHC RBC Auto-mCnc 35.6 g/dL 04/11/2025 30 - 36 HHCCT Platelet num Bld Auto 250.0 Thou/uL 04/11/2025 150 - 450 HHCCT RBC num Bld Auto 5.91 Mil/uL 04/11/2025 4.5 - 6.2 HHCCT PMV Bld Auto 9.9 fL 04/11/2025 7.5 - 12.5 HHCCT Neutrophils num Bld Auto 9.6 Thou/uL Above high normal 04/11/2025 2 - 7.5 HHCCT Basophils/leuk NFr Bld Auto 0.4 % 04/11/2025 HHCCT Troponin T SerPl-mCnc 22.0 ng/L Normal 09/09/2024 - HHCCT Delta NO CHANGE Normal 09/09/2024 - 3 HHCCT B-OH-Butyr SerPl-sCnc 0.08 mmol/L Normal 09/09/2024 - 0.28 HHCCT Delta NO PREVIOUS RESULT Normal 09/09/2024 - 3 HHCCT Troponin T SerPl-mCnc 22.0 ng/L Normal 09/09/2024 - HHCCT Lipase SerPl-cCnc 28.0 U/L Normal 09/09/2024 13 - 60 H HCCT Magnesium SerPl-mCnc 1.9 mg/dL Normal 09/09/2024 1.6 - 2. 7 HHCCT AST SerPl-cCnc 18.0 U/L Normal 09/09/2024 10 - 55 HHCC T ALT SerPl-cCnc 19.0 U/L Normal 09/09/2024 10 - 55 [facility]CC T Calcium SerPl-mCnc 9.1 mg/dL Normal 09/09/2024 8.7 - 10.5 HHCCT GFR/BSA.pred SerPlBld ZVP-LDV-VrWOry >90.0 Normal 09/09/2024 59 - HHCCT Potassium SerPl-sCnc 4.3 mmol/L Normal 09/09/2024 3.4 - 5 .3 HHCCT Albumin/Glob SerPl 1.2 Ratio Normal 09/09/2024 1 - 3 HHCCT ALP SerPl-cCnc 86.0 U/L Normal 09/09/2024 45 - 128 HHCC T Albumin SerPl-mCnc 3.9 g/dL Normal 09/09/2024 3.5 - 5 HHCCT Globulin Ser Calc-mCnc 3.3 g/dL Normal 09/09/2024 1.5 - 3.9 HHCCT Anion Gap Bld-sCnc 11.0 Normal 09/09/2024 7 - 17 HHCCT Bilirub SerPl-mCnc 1.0 mg/dL Normal 09/09/2024 0.2 - 1 HHCCT Creat SerPl-mCnc 0.6 mg/dL Normal 09/09/2024 0.5 - 1.3 HH CCT BUN SerPl-mCnc 13.0 mg/dL Normal 09/09/2024 8 - [address] Chloride SerPl-sCnc 97.0 mmol/L Below low normal 09/09/2024 98 - 107 HHCCT BUN/Creat SerPl 22.0 Ratio Normal 09/09/2024 10 - 25 HH CCT Sodium SerPl-sCnc 134.0 mmol/L Below low normal 09/09/2024 1 36 - 145 HHCCT Prot SerPl-mCnc 7.2 g/dL Normal 09/09/2024 6.3 - 8.[address] CO2 SerPl-sCnc 26.0 mmol/L Normal 09/09/2024 22 - 33 HH CCT Glucose SerPl-mCnc 333.0 mg/dL Above high normal 09/09/2024 65 - 99 HHCCT Neutrophils/leuk NFr Bld Auto 62.6 % Normal 09/09/2024 HHCCT Monocytes num Bld Auto 0.6 Thou/uL Normal 09/09/2024 0.2 - 1.5 HHCCT MCH RBC Qn Auto 29.4 pg Normal 09/09/2024 26 - [address] Basophils/leuk NFr Bld Auto 0.5 % Normal 09/09/2024 HHCCT Lymphocytes/leuk NFr Bld Auto 30.2 % Normal 09/09/2024 HHCCT Hgb Bld-mCnc 17.5 g/dL Normal 09/09/2024 13 - 17.7 HHCCT Eosinophil num Bld Auto 0.11 Thou/uL Normal 09/09/2024 0 - 0.7 HHCCT RDW RBC Auto-Rto 11.9 % Normal 09/09/2024 11.5 - 14.5 HHCCT Imm Granulocytes/leuk NFr Bld Auto 0.2 % Normal 09/09/2024 HHCCT RBC num Bld Auto 5.96 Mil/uL Normal 09/09/2024 4.5 - 6.2 HHCCT MCV RBC Auto 82.0 fL Normal 09/09/2024 80 - 100 HHCCT Eosinophil/leuk NFr Bld Auto 1.0 % Normal 09/09/2024 HHCCT Neutrophils num Bld Auto 6.78 Thou/uL Normal 09/09/2024 2 - 7.5 HHCCT Imm Granulocytes num Bld Auto 0.02 Thou/uL Normal 09/09/2024 0 - 0.1 HHCCT Monocytes/leuk NFr Bld Auto 5.5 % Normal 09/09/2024 HHCCT Basophils num Bld Auto 0.05 Thou/uL Normal 09/09/2024 0 - 0.2 HHCCT WBC num Bld Auto 10.8 Thou/uL Normal 09/09/2024 4 - 11 HHCCT PMV Bld Auto 9.7 fL Normal 09/09/2024 7.5 - 12.5 HHCCT MCHC RBC Auto-mCnc 35.9 g/dL Normal 09/09/2024 30 - 36 HHCCT Platelet num Bld Auto 252.0 Thou/uL Normal 09/09/2024 150 - 450 HHCCT Hct VFr Bld Auto 48.8 % Normal 09/09/2024 39 - 54 HH CCT Lymphocytes num Bld Auto 3.27 Thou/uL Normal 09/09/2024 1.5 - 4.5 HHCCT pCO2 BldV 48.0 mmHG Normal 09/09/2024 35 - 50 HHCCT Base excess BldA Calc-sCnc 1.8 mmol/L Normal 09/09/2024 0 - 3 HHCCT CO2 BldV-sCnc 24.0 mmol/L Normal 09/09/2024 23 - [address] pH BldV 7.38 Normal 09/09/2024 7.33 - 7.43 HHCCT pO2 BldV 46.0 mmHG Normal 09/09/2024 0 - 60 HHCCT Respiratory Information ROOM AIR Normal 09/09/2024 HHCCT Magnesium SerPl-mCnc 2.0 mg/dL Normal 03/11/2024 1.6 - 2. 7 HHCCT ALP SerPl-cCnc 88.0 U/L Normal 03/11/2024 45 - 128 HHCC T BUN/Creat SerPl 26.0 Ratio Above high normal 03/11/2024 10 - 25 HHCCT Albumin/Glob SerPl 1.1 Ratio Normal 03/11/2024 1 - 3 HHCCT Prot SerPl-mCnc 7.5 g/dL Normal 03/11/2024 6.3 - 8.[address] Glucose SerPl-mCnc 313.0 mg/dL Above high normal 03/11/2024 65 - 99 HHCCT Potassium SerPl-sCnc 4.8 mmol/L Normal 03/11/2024 3.4 - 5 .3 HHCCT Creat SerPl-mCnc 0.7 mg/dL Normal 03/11/2024 0.5 - 1.3 HH CCT BUN SerPl-mCnc 18.0 mg/dL Normal 03/11/2024 8 - [address] Globulin Ser Calc-mCnc 3.6 g/dL Normal 03/11/2024 1.5 - 3.9 HHCCT Bilirub SerPl-mCnc 0.7 mg/dL Normal 03/11/2024 0.2 - 1 HHCCT CO2 SerPl-sCnc 19.0 mmol/L Below low normal 03/11/2024 22 - 33 HHCCT Anion Gap Bld-sCnc 16.0 Normal 03/11/2024 7 - 17 HHCCT Calcium SerPl-mCnc 9.0 mg/dL Normal 03/11/2024 8.7 - 10.5 HHCCT GFR/BSA.pred SerPlBld LKE-GFO-GeLZzg >90.0 Normal 03/11/2024 59 - HHCCT Chloride SerPl-sCnc 97.0 mmol/L Below low normal 03/11/2024 98 - 107 HHCCT Albumin SerPl-mCnc 3.9 g/dL Normal 03/11/2024 3.5 - 5 HHCCT ALT SerPl-cCnc 25.0 U/L Normal 03/11/2024 10 - 55 HHCC T Sodium SerPl-sCnc 132.0 mmol/L Below low normal 03/11/2024 1 36 - 145 HHCCT AST SerPl-cCnc 38.0 U/L Normal 03/11/2024 10 - 55 [facility] T Squamous num/area UrnS HPF 1.0 PER HPF Normal 03/11/2024 0 - 4 [facility] RBC num/area UrnS HPF 2.0 per hpf Normal 03/11/2024 0 - 4 [facility] WBC num/area UrnS HPF 7.0 per hpf Above high normal 03/11/2024 0 - 4 [facility] Ketones Ur Strip-mCnc Negative Normal 03/11/2024 - [facility] Bilirub Ur Strip-mCnc Negative Normal 03/11/2024 - [facility] Prot Ur Strip-mCnc Moderate (100 mg/dL) Abnormal 03/11/2024 - [facility] Color Ur Yellow Normal 03/11/2024 [facility] Nitrite Ur Ql Strip Negative Normal 03/11/2024 - [facility] Sp Gr Ur Strip 1.033 Above high normal 03/11/2024 1.003 - 1.03 [facility] Leukocyte esterase Ur Ql Strip Negative Normal 03/11/2024 - [facility] pH Ur Strip 6.0 Normal 03/11/2024 5 - 8 [facility] Glucose Ur Strip-mCnc Large Abnormal 03/11/2024 - [facility] Clarity Ur Clear Normal 03/11/2024 [facility] Hgb Ur Ql Strip Negative Normal 03/11/2024 - [facility] CT PMV Bld Auto 9.9 fL Normal 03/11/2024 7.5 - 12.5 [facility] Basophils num Bld Auto 0.03 Thou/uL Normal 03/11/2024 0 - 0.2 [facility] Imm Granulocytes num Bld Auto 0.02 Thou/uL Normal 03/11/2024 0 - 0.1 [facility] RBC num Bld Auto 5.45 Mil/uL Normal 03/11/2024 4.5 - 6.2 [facility] Neutrophils/leuk NFr Bld Auto 62.0 % Normal 03/11/2024 [facility] Platelet num Bld Auto 254.0 Thou/uL Normal 03/11/2024 150 - 450 [facility] Imm Granulocytes/leuk NFr Bld Auto 0.2 % Normal 03/11/2024 [facility] RDW RBC Auto-Rto 11.9 % Normal 03/11/2024 11.5 - 14.5 [facility] Basophils/leuk NFr Bld Auto 0.3 % Normal 03/11/2024 [facility] Eosinophil num Bld Auto 0.13 Thou/uL Normal 03/11/2024 0 - 0.7 [facility] Lymphocytes/leuk NFr Bld Auto 28.1 % Normal 03/11/2024 [facility] MCHC RBC Auto-mCnc 36.7 g/dL Above high normal 03/11/2024 30 - 36 [facility] Monocytes num Bld Auto 0.79 Thou/uL Normal 03/11/2024 0.2 - 1.5 [facility] Lymphocytes num Bld Auto 2.73 Thou/uL Normal 03/11/2024 1.5 - 4.5 [facility] WBC num Bld Auto 9.7 Thou/uL Normal 03/11/2024 4 - 11 [facility] Hct VFr Bld Auto 44.7 % Normal 03/11/2024 39 - 54 [facility] Eosinophil/leuk NFr Bld Auto 1.3 % Normal 03/11/2024 [facility] MCV RBC Auto 82.0 fL Normal 03/11/2024 80 - 100 [facility] MCH RBC Qn Auto 30.1 pg Normal 03/11/2024 26 - [address] Neutrophils num Bld Auto 6.02 Thou/uL Normal 03/11/2024 2 - 7.5 [facility] Monocytes/leuk NFr Bld Auto 8.1 % Normal 03/11/2024 [facility] Hgb Bld-mCnc 16.4 g/dL Normal 03/11/2024 13 - 17.7 [facility] History of Medication Use Medication Directions Dispensed Refills Start Date End Date Stat sildenafil (REVATIO) 20 MG tablet TAKE 1 TO 5 TABLETS BY MOUTH ONCE A DAY NEEDED. 07/12/2022 active HYDROcodone-acetaminop hen (NORCO) 5-325 mg per tablet Take 1-2 tablets by mouth Every 4 (four) to 6 (six) hours as needed for severe pain (pain). Max Daily Amount: 12 tablets 05/15/2022 active sulfamethoxazole-trime thoprim (BACTRIM DS,SEPTRA DS) 800-160 MG per tablet Take 1 tablet by mouth 2 (two) times a day. Take as directed or until you run out. Take with lots of fluids. 05/15/2022 active acetaminophen (TYLENOL) 500 MG tablet Take 1 tablet (500 mg total) by mouth 4 times daily (every 6 hours) as needed for mild pain (pain). 05/08/2022 active ibuprofen (MOTRIN) 600 MG tablet Take 1 tablet (600 mg total) by mouth every 6 (six) hours. 05/08/2022 active famotidine (PEPCID) 20 MG tablet Take 1 tablet (20 mg total) by mouth 2 (two) times a day. 03/17/2021 active clotrimazole-betametha sone (LOTRISONE) cream Apply topically 2 (two) times a day. 02/23/2021 active atorvastatin (LIPITOR) 40 MG tablet Take 40 mg by mouth daily. 10/06/2020 active B-D UF III MINI PEN NEEDLES 31G X 5 MM needle USE DIRECTED WITH INSULIN FOUR TIMES DAILY 10/06/2020 active aspirin enteric coated (ECOTRIN LOW STRENGTH) 81 MG EC tablet Take 81 mg by mouth daily. active insulin aspart (NovoLOG FlexPen) 100 UNIT/ML prefilled pen injection Inject 15 Units under the skin 3 (three) times a day as needed for high blood sugar (With meals if blood glucose greater than 300). active insulin detemir (LevEMIR FlexTouch) 100 UNIT/ML pen injection Inject 70 Units under the skin daily. active metoPROLOL SUCCINATE (TOPROL-XL) 100 MG 24 hr tablet Take 100 mg by mouth daily. active SITagliptin-metFORMIN (JANUMET XR) 50-1000 MG per 24 hr tablet Take 1 tablet by mouth 2 (two) times a day with meals. active SITagliptin-metFORMIN (JANUMET XR) 50-1000 MG per 24 hr tablet Take 1 tablet by mouth 2 (two) times a day with meals. active Problems Problem Status Onset Date Problem Type Date of Resolution Source Scrotal pain active 2018-06-04 ProblemAct [facility] Cellulitis active 2018-06-04 ProblemAct [facility] Type 2 diabetes mellitus with hyperglycemia, with long-term current use of insulin active 2019-10-05 ProblemAct [facility] Essential hypertension active 2019-10-05 ProblemAct [facility] Abscess of left groin active 2017-09-06 ProblemAct [facility] Hyperlipidemia active 2025-08-11 ProblemAct [facility] CT Hyponatremia active 2019-10-05 ProblemAct [facility] Diabetic foot infection active 2025-08-11 ProblemAct [facility] Acute streptococcal pharyngitis active 2019-10-05 ProblemAct [facility] Type 2 diabetes mellitus without complication, unspecified whether half-way insulin use (HCC) active EncounterDiagnosisAct [facility] Encounters Encounter Type Encounter Reason Primary Diagnosis Location Date Emergency Acute upper respiratory infection, unspecified Acute upper respiratory infection, unspecified [place] 10/17/2025 Ambulatory [facility] 10/09/2025 [facility] 10/02/2025 [facility] 09/25/2025 [facility] 09/13/2025 Ambulatory [facility] 08/30/2025 [facility]ulatory [facility] 08/28/2025 [facility]ulatory [facility] 08/27/2025 Ambulatory [facility] 08/13/2025 Inpatient Type 2 diabetes mellitus with other skin complications Type 2 diabetes mellitus with other skin complications [place] 08/11/2025 Emergency Pain in left thigh Pain in left thigh Ted [facility] 06/10/2025 Emergency Cutaneous abscess of groin Cutaneous abscess of groin [facility] 04/14/2025 Emergency Cellulitis of groin Cellulitis of groin H hen[facility]CR[facility] 04/11/2025 Emergency Chest pain, unspecified Chest pain, unspecified [facility] 09/09/2024 Emergency Sacrococcygeal disorders, not elsewhere classified Sacrococcygeal disorders, not elsewhere classified [facility] 08/05/2024 Emergency Polyneuropathy, unspecified Polyneuropathy, unspecified [facility] 03/11/2024 Emergency Type 2 diabetes mellitus without complications Type 2 diabetes mellitus without complications [facility] 01/25/2024 Emergency Effusion, right knee Effusion, right knee [facility] 11/09/2023 Emergency Cutaneous absces s of groin [facility] 05/14/2022 Emergency Cellulitis, unspecified [facility] 05/08/2022 Ambulatory Follow-up [facility] 08/06/2021 Care Team Organization Name Specialty Phone Email Start Date End Da te [facility] 08/28/2025 [facility] 08/13/2025 [facility] 08/11/2025 [facility] 08/11/2025 [facility] FIDEL HINOJOSA Primary Care 04/11[facility]20[facility]/08[facility]2025 [facility] SULMA GRIMES [place] Primary Care [email or web address] 08/08/2024 [facility] 02/21/2024 [facility] Primary Care 11/10/2023 [facility] Yvonne Saenz Primary Care 07/22/2023 [facility] 05/05/2023 [facility] FIDEL HINOJOSA Primary Care 03/24/2023 [facility] Doris Umaña Primary Care 11/15/2022 [facility] Manda Hinojosa Primary Care 05/15/2022 [facility] JESS SANTORO Primary Care 05/16/2021 4 [facility] FIDEL HINOJOSA Primary Care 05/12/2021 1
--- OUTSIDE RECORDS SUMMARY | 2025-10-17 18:00 | XMS_ITS | Patient Health Record ---
Author Organization [facility] Address [address] [place] [address] Care Team Providers Care Practice Billing Associate Name Role Phone Angelina Yvonne Primary Care Provider Stevie Coleman Unavailable [phone] Gerardo Edmonds Unavailable [phone] Allergies Allergen (clinical drug ingredient) Drug/Non Drug Allergy documented on EMR Reaction Allergy Type Onset Date Status Nicotine patch caused vomiting Drug Allergy Active Results Component Value Reference Range Notes Hemoglobin A1c IH Reviewed date:10/29/2024 11:23:50 PM Interpretation:7.9 Performing Lab: Notes/Report: 7.9 Lot No. [id number] Expiration 08/23/2026 Hemoglobin A1C IH 7.9 Reference Range 4.3 - 7 4.3-7.0 Reason For Referral No Information Medications Medication SIG (Take, Route, Frequency, Duration) Notes Start Date End Date Status Metoprolol Succinate ER 100 MG Tablet Extended Release 24 Hour 1 tab(s) orally once a day; Duration: 90 Unknown Aspir-Low 81 MG Tablet Delayed Release 1 tab(s) orally once a day; Duration: 90 Active Janumet XR 50-1000 MG Tablet Extended Release 24 Hour TAKE 1 TABLET BY MOUTH TWICE DAILY; Duration: 90 Active Lisinopril 5 MG Tablet 1 tablet Orally Once a day; Duration: 30 days no futher refillls without appointment Active Toujeo Max SoloStar 300 UNIT/ML Solution Pen-injector Inject 72 units Subcutaneous once a day; Duration: 90 days 12/30/2022 Not-Taking FreeStyle Darrius 2 Sensor - Miscellaneous use as directed to check blood glucose daily DX E11.9 and change sensor every two weeks; Duration: 84 days 11/09/2023 Active OneTouch Delica Plus [id number] XX XX DIRECTED TID; Duration: 30 DAYS *Change/Edit strength and directions* 12/06/2018 Unknown FreeStyle Darrius 2 [place] - Device use as directed to check blood glucose daily DX E11.9; Duration: 365 days 11/09/2023 Active OneTouch Delica Plus [id number] 0 XX XX DIRECTED TID; Duration: 30 *Change/Edit strength and directions* Unknown Atorvastatin Calcium 40 MG Tablet 1 tab(s) orally once a day; Duration: 90 days Active OneTouch Ultra - Strip E11.9 subcu three times a day; Duration: 30 days 12/30/2022 Unknown NovoLOG FlexPen 100 UNIT/ML Solution Pen-injector inject 15 breakfast and lunch, 20 units dinner subcutaneously 3 times a day (before meals); Duration: 90 days Active FreeStyle Darrius 2 Sensor - Miscellaneous as directed E11.9 every 2 weeks; Duration: 84 days Unknown FreeStyle Darrius 2 [place] - Device as directed E11.9; Duration: 365 days Unknown Immunizations Vaccine Route Administration Date Status Comme nts COVID-19 Livier Vaccine (Declined) Unknown 08/14/2021 Refused COVID-19 Moderna Vaccine (Declined) Unknown 08/14/2021 Refused COVID-19 Moderna Vaccine (Declined) Unknown 07/06/2022 Refused COVID-19 ZelosportNTech Vaccine (Declined) Unknown 08/14/2021 Refused Influenza (Declined) Unknown 10/06/2018 Refused Influenza (Declined) Unknown 11/17/2018 Refused Influenza (Declined) Unknown 12/20/2019 Refused Influenza (Declined) Unknown 08/14/2021 Refused Influenza (Declined) Unknown 07/06/2022 Refused PPV 23 (Adults and high risk children over 2) IM Intramuscular 10/30/2014 Administered Tdap (Declined) Unknown 12/20/2019 Refused Tdap (Declined) Unknown 07/06/2022 Refused Tdap (Historical) Unknown 10/06/2018 Refused Per Pat ient given in ER due to cut to the hand. Social History Tobacco Use: Social History Observation Description Date Details (start date - stop date) Current Smoker 08/24/1997 - NA Sex Assigned At : Social History Observation Description Sex Assigned At Male Social History Social History Social Info Question Answer Notes Patient's perception of literacy I read well in: [place]is [place] citizen of [place] Tobacco Control (Standard) Tobacco use: Current smoker When did you start smoking? 08/24/1997 How often do you smoke cigarettes? Every day How many cigarettes a day do you smoke? 6-10 How soon after you wake up do you smoke your first cigarette? 6-30 minutes Are you interested in quitting? Thinking about quitting How do you like To Learn : Visual Grade : 11 Date changed 10/06/2018 Sexual History Had sex in the past 12 months Yes with Women only Use protection? No Prevention Strategies discussed Other Have you ever had an STD? No LMP: n/a Language Spoken Language Spoken Romanian, Kazakh Additional Details Category Social Info Options Details Social History Smokers in household : no Drug Use Denies Current u se Problems Problem Type SNOMED Code ICD Code Onset Dates Problem Status W/U Status Risk Notes Problem Type II diabetes mellitus without complication (574151878) Type 2 diabetes mellitus without complications (E11.9) Active confirmed his a1c is stil l very elevated and he complains of pain with volume of insulin injections. Will change to Toujeo so he has a smaller concentration of insulin given that he's injecting large quantities. Will adjust for 80% with small increase for better glucose control and start at 74 units. Pt to f/u in 4 weeks for eval of home glucoses. He's encouraged to replace glucometer battery and keep log. 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 He's aware he needs his glucoses under much better control or infections will continue. He declines any treatment today. Problem Tobacco use (945509152) Tobacco use (Z72.0) Active confirmed Problem Long-term current use of insulin (385139688) correction (current) use of insulin (Z79.4) Active confirmed Problem Body mass index 30.00 to 34.99 (766400111337003 ) BMI 34.0-34.9,adult (Z68.34) Active confirmed Problem Essential hypertension (47705906) Hypertension, essential (I10) Active confirmed Problem Long-term current use of insulin (296969014) optimization specialist current use of insulin (Z79.4) Active confirmed Problem Mixed hyperlipidemia (609798589) Mixed dyslipidemia (E78.2) Active confirmed Encouraged to restart statin and will check levels again in 4-6 weeks. Problem Erectile dysfunction (disorder) (715714601) Erectile dysfunction, unspecified erectile dysfunction type (N52.9) Active confirmed Was taking sildenafil with his urologist and stopped his atorvastatin and metoprolol after being told it will mess with the ED medicine. However reviewed critical to continue statin to avoid plaque build up which will lead to ED and worse, CV disease, and metop should be continued per cardiology but he should f/u with them. Noted that nitroglycerin is the contraindicated med with sildenafil. Problem Chest pain (54190527) Chest pain, unspecified type (R07.9) Active confirmed Vital Signs Temperature 97.8 degrees Fahrenheit 10/29/2024 Respiratory Rate 20 /min 10/29/2024 Oximetry 98 % 10/29/2024 Blood pressure diastolic 98 mm Hg 10/29/2024 Height 71.75 in 10/29/2024 Blood pressure systolic 145 mm Hg 10/29/2024 Weight 254 lbs 10/29/2024 BMI 34.69 kg/m2 10/29/2024 Encounters Encounter Location Date Provider Diagnosis [address] [address] 08/13/2025 [place] [address] 08/14/2025 [place] [address] 10/29/2024 Stevie Coleman Hypertension, essential I10 ; Type 2 diabetes mellitus without complications E11.9 and correction (current) use of insulin Z79.4 Assessments Encounter Date Diagnosis (ICD Code) Assessment Notes Treatment Notes Treatment Clinical Notes Section Notes 10/29/2024 Type 2 diabetes mellitus without complications (ICD-10 - E11.9) Last updated a1c 7.9 ( 10/29/24 ) 10/29/2024 Hypertension, essential (ICD-10 - I10) Not at goal . ? compliance with meds. Avoid salty foods. 10/29/2024 correction (current) use of insulin (ICD-10 - Z79.4) 10/29/2024 Other Last updated a1c 7.9 ( 10/29/24 ); continue current regimen. Avoid sweets. Plan Of Treatment Pending Test Test Name Order Date Comp Metabolic Panel w/eGFR 35500 2018 Comp Metabolic Panel w/eGFR 12194 2020 Comp Metabolic Panel w/eGFR 46646 2019 CBC (H/H,RBC,Indices,WBC,Plt) 1759 11/17 Hemoglobin A1c 496 11/17/2020 Microalbumin,[facility] (w/creat) 6517 08/25 Microalbumin,[facility] (w/creat) 6517 06/24 Microalbumin,[facility] (w/creat) 6517 10/25 Lipid Panel, Standard 7600 11/17/2020 Lipid Panel, Standard 7600 07/03/2019 Hemoglobin A1c IH 07/03/2019 Rapid Flu Test 12/20/2019 CBC (H/H, RBC, INDICES, WBC, PLT) 2014 Hemoglobin A1c 12/20/2019 Insurance Providers Payer Name Payer Address Payer Phone Subscriber Number Group Number Insured Name Patient Relationship to Insured Coverage Start Date Coverage End Date Medicaid Jean Pierre [place] [address] [phone] [id number] Kody Ruiz Self - patient is the insured Medicaid Jean [place] [address] [phone] [id number] Kody Ruiz Self - patient is the insured Medical (General) History Medical History History ICD Code Obese Tobacco Abuse - action stage of change, self-managed (12/08) Hyperlipidemia - managed with diet/exerx cise (12/08) DM Surgical History Surgery Date(Month/Year) Hospitalization History Reason Date(Month/Year) infection and abscess on test2017
[2025-10-17 18:05] LABS: Appearance Urine Cloudy; Glucose Urine UA >=1000 mg/dL (Negative); PH 5.5 (5.0-9.0); Specific Gravity - Urine >= 1.030 (1.005-1.025); UMIC TRIGGER UACC YES
--- NOTE | 2025-10-17 18:09 | PC.NURSE ---
per Sulma JACINTO give fluids total of 3,240. 1 liter bolus already administered. verbal order to give additional 2,240 for total of 3,240ml
[2025-10-17 18:16] LABS: UACC Culture Trigger YES
[2025-10-17 19:40] LABS: Reflex Lactate? Lactic Acid Added
[2025-10-17] MEDS: iohexoL 350 MG/ML 100 ML INFUS..BTL 85 ML IV (19:47)
[2025-10-17 20:18] LABS: ~Lactic Acid-LAB USE ONLY 2.2 mmol/L (0.5-2.0)
[2025-10-17 21:58] LABS: Reflex Lactate? 2 Y
== END 2025-10-17 23:20 | disposition home or self-care (01) ==
PROVIDERS: Physician Assistant Medical; Emergency Provider Emergency Medicine
DX: D72.825 Bandemia (principal); R51.9 Headache, unspecified; E11.9 Type 2 diabetes mellitus without complications; R05.9 Cough, unspecified; R00.0 Tachycardia, unspecified; R11.2 Nausea with vomiting, unspecified; R06.02 Shortness of breath; M79.10 Myalgia, unspecified site; I10 Essential (primary) hypertension; Z86.718 Personal history of other venous thrombosis and embolism; Z03.818 Encounter for observation for suspected exposure to other biological agents ruled out; Z79.01 Long term (current) use of anticoagulants; Z79.899 Other long term (current) drug therapy
CPT/HCPCS: 36415; 71046; 71275; 74177; 80053; 81001; 83605; 83735; 84484; 85007; 85027; 85610; 87040; 87086; 87147; 87186; 87205; 87637; 93005; 93308; 99285; J0131; J0696; J7120; Q9967

== ENCOUNTER → 2025-10-17 16:36 | Outpatient (BNV) | payer MEDICAID, SELFPAY | PROVIDERS: Emergency Provider Emergency Medicine; Visit Provider Radiology Diagnostic Radiology | DX: R16.0 Hepatomegaly, not elsewhere classified (principal); K76.0 Fatty (change of) liver, not elsewhere classified; J98.11 Atelectasis; J98.09 Other diseases of bronchus, not elsewhere classified | CPT/HCPCS: 71046; 71275; 74177 ==

== ENCOUNTER → 2025-10-17 16:39 | Outpatient (BNV) | payer MEDICAID, SELFPAY | PROVIDERS: Emergency Provider Emergency Medicine; Visit Provider Internal Medicine Cardiovascular Disease | DX: R00.0 Tachycardia, unspecified (principal) | CPT/HCPCS: 93010 ==